=== PATIENT | female | born 1955 | race Caucasian/White ===

== ENCOUNTER → 2017-09-21 | Outpatient (CLI) | payer BC ==
[~2017-09-21] MED LIST: LIDOCAINE 1% MDV 20ML VIAL As Ordered
== END ==
LOC: M RADPRO 09:40
DX: D37.030 Neoplasm of uncertain behavior of the parotid salivary glands (principal); Z79.82 Long term (current) use of aspirin
CPT/HCPCS: 42400

== ENCOUNTER → 2021-03-13 | Outpatient (CLI) | payer MEDICARE ==
[~2021-03-13] MED LIST changes: +ATOR1TAB19 PO; +ESTR625TA PO; -LIDOCAINE 1% MDV 20ML VIAL As Ordered
== END ==
LOC: M LABSMTC 09:06
PROVIDERS: ATTEND Anesthesiology
DX: Z01.812 Encounter for preprocedural laboratory examination (principal); Z20.822 Contact with and (suspected) exposure to COVID-19

== ENCOUNTER 2021-03-17 07:54 | Day surgery (SDC) | payer MEDICARE ==
[~2021-03-17] VITALS: Ht 160 cm; Wt 54.9 kg
[~2021-03-17 07:54] MED LIST changes: +LIDOCAINE 1% MDV 20ML VIAL SQ PRN; +LR 1,000 ML IV ONE
--- OUTSIDE RECORDS SUMMARY | 2021-03-17 07:57 | CCD | Continuity of Care Document ---
Author Author Nori ALCALA [place] Organization Unknown Address [address] [place] [address] [place] [address] Phone [phone] Care Team Providers Care Hard Tile Setter Apprentice Name Role Phone Jose Armando Suarez MD AUT Unavailable Problems Description No Information Available Social History Type Date Description Comments Sex Unknown ETOH Use Rarely consumes alcohol Tobacco Use Start: Unknown Patient has never smoked Allergies and adverse reactions Description No Known Drug Allergies Medications Active Medications SIG Qnty Indications Ordering Provide r Date Amoxicillin/Clavulanate Potassium 875-125mg Tablets 1 tab by mouth twice a day for 7 days 14tabs J01.90 Christian Tariq JR., M.D. 01/24/2021 Premarin Unknown Atorvastatin Calcium 10mg Tablets Take 1 Tablet By Mouth Every Day Unknown Multi Adult Gummies Unknown History Medications No Active Medications Unknown - 01/24/2021 Immunizations CPT Code Status Date Vaccine Lot # [id number] Given 09/25/2015 Tdap/Tetanus, Di phth Toxoids/Acellular Pertussis Vac 7Yr Or > [id number] Vital Signs Date Vital Result Comment 01/24/2021 2:24pm BP Systolic 172 mmHg BP Diastolic 95 mmHg Heart Rate 79 /min Respiratory Rate 14 /min O2 % BldC Oximetry 96 % Body Temperature 97.5 F Weight 119.00 lb Height 63 inches 5'3" BMI (Body Mass Index) 21.1 kg/m2 Pain Level 3 01/07/2019 8:47am BP Systolic 160 mmHg BP Diastolic 91 mmHg Heart Rate 79 /min Respiratory Rate 18 /min O2 % BldC Oximetry 99 % Body Temperature 99.0 F Weight 118.00 lb Height 63 inches 5'3" BMI (Body Mass Index) 20.9 kg/m2 Pain Level 0 Results Description No Information Available Procedures Date Code Description Status 01/24/2021 99363 Office/Outpatient Established Lo w MDM 20-29 Min Completed Medical Devices Description No Information Available Encounters Type Date Location Provider Dx Diagnosis Office Visit 01/24/2021 1:15p Main Office CJ Gabriel JR H 66.92 Otitis media, unspecified, left ear Z20.828 Contact w and exposure to ot h viral communicable diseases Assessments Date Code Description Provider 01/27/2021 Z20.828 Contact with and (jackson spected) exposure to other viral communicable diseases CJ Jimenez 01/24/2021 H66.92 Otitis media, unspecified, left ear CJ Gabriel JR 01/24/2021 Z20.828 Contact with and (jackson spected) exposure to other viral communicable diseases CJ Gabriel JR Plan of Treatment No Information Available Functional Status Description No Information Available Mental Status Description No Information Available Referrals Description No Information Available
--- OUTSIDE RECORDS SUMMARY | 2021-03-17 07:57 | CCD | Continuity of Care Document ---
Author Author Nori SCHMIDT [place] Organization Unknown Address [address] [place] [address] [place] [address] Phone [phone] Care Team Providers Care Material Planner Name Role Phone Jose Armando Suarez MD AUTM Unavailable Problems Description No Information Available Social [...] CPT Code Status Date Vaccine Lot # [id number] Given 09/25/2015 Tdap/Tetanus, Di phth Toxoids/Acellular Pertussis Vac 7Yr Or > [id number] Vital Signs Date Vital Result Comment 01/24/2021 [...] 0 Results Description No Information Available Procedures Description No Information Available Medical Devices Description No Information Available Encounters Description No Information Available Assessments Description No Information Available Plan of Treatment 01/24/2021 - Evert Schmidt JR PA* All * New Medication:* Amoxicillin/Clavulanate Potassium 875-125 mg - 1 tab by mouth twice a day for 7 days * No Active Medications - Functional Status Description No Information Available Mental Status Description No Information Available Referrals Description No Information Available
--- OUTSIDE RECORDS SUMMARY | 2021-03-17 07:57 | CCD | Continuity of Care Document ---
Author Author Nori ALCALA [place] Organization Unknown Address [address] [place] [address] [place] [address] Phone [phone] Care Team Providers Care Medical Transcription Radiology Name Role Phone Jose Armando Suarez MD [...] CPT Code Status Date Vaccine Lot # [id number] Given 09/25/2015 Tdap/Tetanus, Di phth Toxoids/Acellular Pertussis Vac 7Yr Or > [id number] Vital Signs Date Vital Result Comment 01/24/2021 [...] Available Procedures Date Code Description Status 01/24/2021 22223 Office/Outpatient Established Lo w MDM 20-29 Min Completed Medical Devices Description No Information Available Encounters Type Date Location Provider Dx Diagnosis Office Visit 01/24/2021 1:15p Main Office CJ Gabriel JR H 66.92 Otitis media, unspecified, left ear Z20.828 Contact w and exposure to ot h viral communicable diseases Assessments Date Code Description Provider 01/24/2021 H66.92 Otitis media, unspecified, left ear CJ Gabriel JR 01/24/2021 Z20.828 Contact with and (jackson spected) exposure to other viral communicable diseases CJ Gabriel JR Plan of Treatment No Information Available Functional Status Description No Information Available Mental Status Description No Information Available Referrals Description No Information Available
--- OUTSIDE RECORDS SUMMARY | 2021-03-17 07:57 | CCD | Continuity of Care Document ---
Author Author Nori CAGLE [place] Organization Unknown Address [address] [place] [address] [place] [address] Phone [phone] Care Team Providers Care Cryptological Technician Name Role Phone Jose Armando Suarez MD [...] CPT Code Status Date Vaccine Lot # [id number] Given 09/25/2015 Tdap/Tetanus, Di phth Toxoids/Acellular Pertussis Vac 7Yr Or > [id number] Vital Signs Date Vital Result Comment 01/24/2021 [...] Available Procedures Date Code Description Status 01/24/2021 70367 Office/Outpatient Established Lo w MDM 20-29 Min [...]
--- OUTSIDE RECORDS SUMMARY | 2021-03-17 07:57 | CCD | Continuity of Care Document ---
Author Author Nori DACOSTA [place] Organization Unknown Address [address] [address] Phone [phone] Care Team Providers Care Sample Processor Name Role Phone Jose Armando Suarez M.D. AUTM [phone] Central Scheduling AUTM [phone] Problems Description No Active Problems Social History Type Date Description Comments Sex Unknown ETOH Use Rarely Tobacco Use Start: Unknown Non Smoker Recreational Drug Use Denies Drug Use Allergies and adverse reactions Description No Known Drug Allergies Medications Active Medications SIG Qnty Indications Ordering Provide r Date Multi Vitamin Tablets Unknown Vitamin D3 5000Unit Capsules once a day Unknown Premarin 0.625mg Tablets 1 by mouth every day Unknown Atorvastatin Calcium 10mg Tablets Jose Armando Suarez M.D. Immunizations Description No Information Available Vital Signs Date Vital Result Comment 03/10/2021 9:52am Height 63 inches 5'3" Weight 120.00 lb BMI (Body Mass Index) 21.3 kg/m2 [place] Body Weight 115 lb Weight 54.432 kg BSA (Body Surface Area) 1.56 m2 10/19/2017 1:46pm Height 63 inches 5'3" Weight 120.00 lb BMI (Body Mass Index) 21.3 kg/m2 [place] Body Weight 115 lb Weight 54.432 kg BSA (Body Surface Area) 1.56 m2 Results Description No Information Available Procedures Date Code Description Status 03/10/2021 10584 Office/Outpatient New Moderate M DM 45-59 Minutes Completed 03/10/2021 19485 Endoscopy Nasal Diagnostic Compl eted Medical Devices Description No Information Available Encounters Type Date Location Provider Dx Diagnosis Office Visit 03/10/2021 9:30a [facility] Mack Dacosta MD H69.93 Unspecified Eustachian tube disorder, bilateral R42 Dizziness and giddiness H91.93 Unspecified hearing loss, bi lateral H70.91 Unspecified mastoiditis, rig ht ear Assessments Date Code Description Provider 03/10/2021 H69.93 Unspecified Eustachian tube diso rder, bilateral Mack Dacosta MD 03/10/2021 R42 Dizziness and giddiness Mack srinivasan MD 03/10/2021 H91.93 Unspecified hearing loss, bilate ral Mack Dacosta MD 03/10/2021 H70.91 Unspecified mastoiditis, right e ar Mack Dacosta MD Plan of Treatment Future Appointment(s):* 03/17/2021 6:00 am - Mack Dacosta MD at [facility] 03/10/2021 - Mack Dacosta MD* H69.93 Unspecified Eustachian tube disorder, bilateral* Comments:* Management options for eustachian tube dysfunction and right mastoiditis include careful observation with use of antibiotic versus bilateral tympanostomy. Risks of procedure include but not limited to bleeding, infection, GA risks, tympanic membrane perforation, post-op otorrhea, myringosclerosis, cholesteatoma, and need for more tubes. The patient understands and wishes to proceed. * R42 Dizziness and giddiness * H91.93 Unspecified hearing loss, bilateral* Referral:* [facility], Audiology, Pumping Station Engineer * H70.91 Unspecified mastoiditis, right ear Functional Status Description No Information Available Mental Status Description No Information Available Referrals Refer to Reason for Referral Status Appt Date [facility], Audiology Hearing loss of undetermined nature. Please perform comprehensive audiometric assessment [facility] [address] [place] [address] [phone]
--- OUTSIDE RECORDS SUMMARY | 2021-03-17 07:57 | CCD | Continuity of Care Document ---
Author Author Nori ALCALA [place] Organization Unknown Address [address] [place] [address] [place] [address] Phone [phone] Care Team Providers Care Computerized Machine Fabric Cutter Name Role Phone Jose Armando Suarez MD [...] CPT Code Status Date Vaccine Lot # [id number] Given 09/25/2015 Tdap/Tetanus, Di phth Toxoids/Acellular Pertussis Vac 7Yr Or > [id number] Vital Signs Date Vital Result Comment 01/24/2021 [...] Available Procedures Date Code Description Status 01/24/2021 83264 Office/Outpatient Established Lo w MDM 20-29 Min [...]
--- OUTSIDE RECORDS SUMMARY | 2021-03-17 07:58 | CCD ---
Author Author [facility] Organization [facility] Address Unknown Phone Unavailable Care Team Providers Care Pedigree Researcher Name Role Phone Magno ZURITA MD Unavailable Magno Vee MD Unavailable Unavailable Magno ZURITA MD Unavailable Unavailable Magno ZURITA MD Unavailable Unavailable Magno ZURITA MD Unavailable Unavailable Magno ZURITA MD Unavailable Unavailable Magno ZURITA MD Unavailable Unavailable Jose Armando Rubio M.D. Unavailable Unavailable PICKERAL JR J MACARENA PA-C Unavailable Unavailable PICKERAL JR, J MACARENA PA-C Unavailable Unavailable PICKERAL JR, J MACARENA PA-C Unavailable Unavailable PICKERAL JR, J MACARENA PA-C Unavailable Unavailable PICKERAL JR, J MACARENA PA-C Unavailable Unavailable PICKERAL JR, J MACARENA PA-C Unavailable Unavailable PICKERAL JR, J MACARENA PA-C Unavailable Unavailable PICKERAL JR, J MACARENA PA-C Unavailable Unavailable PICKERAL JR, J MACARENA PA-C Unavailable Unavailable PICKERAL JR, J MACARENA PA-C Unavailable Unavailable PICKERAL JR, J MACARENA PA-C Unavailable Unavailable PICKERAL JR, J MACARENA PA-C Unavailable Unavailable PICKERAL JR, J MACARENA PA-C Unavailable Unavailable PICKERAL JR, J MACARENA PA-C Unavailable Unavailable PICKERAL JR, J MACARENA PA-C Unavailable Unavailable PICKERAL JR, J MACARENA PA-C Unavailable Unavailable PICKERAL JR, J MACARENA PA-C Unavailable Unavailable PICKERAL JR, J MACARENA PA-C Unavailable Unavailable PICKERAL JR, J MACARENA PA-C Unavailable Unavailable PICKERAL JR, J MACARENA PA-C Unavailable Unavailable PICKERAL JR, J MACARENA PA-C Unavailable Unavailable PICKERAL JR, J MACARENA PA-C Unavailable Unavailable PICKERAL JR, J MACARENA PA-C Unavailable Unavailable PICKERAL JR, J MACARENA PA-C Unavailable Unavailable PICKERAL JR, J MACARENA PA-C Unavailable Unavailable PICKERAL JR, J MACARENA PA-C Unavailable Unavailable PICKERAL JR, J MACARENA PA-C Unavailable Unavailable JOSE ARMANDO RUBIO Unavailable Unavailable JOCELYNNRajani MD Unavailable Unavailable JOCELYNNRajani MD Unavailable Unavailable JOCELYNNRajani MD Unavailable Unavailable JOCELYNNRajani MD Unavailable Unavailable JOCELYNNRajani MD Unavailable Unavailable JOCELYNNRajani MD Unavailable Unavailable JOCELYNNRajani MD Unavailable Unavailable JOCELYNNRajani MD Unavailable Unavailable JOCELYNNRajani MD Unavailable Unavailable JOCELYNNRajani MD Unavailable Unavailable JOCELYNNRajani MD Unavailable Unavailable JOCELYNNRajani MD Unavailable Unavailable JOCELYNNRajani MD Unavailable Unavailable JOCELYNNRajani Thompson MD Unavailable Unavailable JOCELYNNRajani MD Unavailable Unavailable JOCELYNNRajani Thompson MD Unavailable Unavailable JOCELYNNRajani MD Unavailable Unavailable JOCELYNNRajani MD Unavailable Unavailable JOCELYNNRajani MD Unavailable Unavailable JOCELYNNRajani MD Unavailable Unavailable JOCELYNNRajani MD Unavailable Unavailable JOCELYNNRajani MD Unavailable Unavailable JOCELYNNRajani MD Unavailable Unavailable JOCELYNNRajani MD Unavailable Unavailable JOCELYNNRajani MD Unavailable Unavailable JOCELYNNRajani MD Unavailable Unavailable JOCELYNNRajani MD Unavailable Unavailable JOCELYNNRajani MD Unavailable Unavailable JOCELYNNRajani MD Unavailable Unavailable JOCELYNNRajani MD Unavailable Unavailable JOCELYNNRajani MD Unavailable Unavailable GABRIEL, C ANTONIETA MD Unavailable Unavailable GABRIEL, C ANTONIETA MD Unavailable Unavailable GABRIEL, C ANTONIETA MD Unavailable Unavailable GABRIEL, C ANTONIETA MD Unavailable Unavailable GABRIEL, C ANTONIETA MD Unavailable Unavailable GABRIEL, C ANTONIETA MD Unavailable Unavailable GABRIEL, C ANTONIETA MD Unavailable Unavailable GABRIEL, C ANTONIETA MD Unavailable Unavailable GABRIEL, C ANTONIETA MD Unavailable Unavailable GABRIEL, C ANTONIETA MD Unavailable Unavailable GABRIEL, C ANTONIETA MD Unavailable Unavailable GABRIEL, C ANTONIETA MD Unavailable Unavailable GABRIEL, C ANTONIETA MD Unavailable Unavailable GABRIEL, C ANTONIETA MD Unavailable Unavailable GABRIEL, C ANTONIETA MD Unavailable Unavailable GABRIEL, C ANTONIETA MD Unavailable Unavailable GABRIEL, C ANTONIETA MD Unavailable Unavailable GABRIEL, C ANTONIETA MD Unavailable Unavailable GABRIEL, C ANTONIETA MD Unavailable Unavailable GABRIEL, C ANTONIETA MD Unavailable Unavailable GABRIEL, C ANTONIETA MD Unavailable Unavailable GABRIEL, C ANTONIETA MD Unavailable Unavailable GABRIEL, C ANTONIETA MD Unavailable Unavailable GABRIEL, C ANTONIETA MD Unavailable Unavailable GABRIEL, C ANTONIETA MD Unavailable Unavailable GABRIEL, C ANTONIETA MD Unavailable Unavailable GABRIEL, C ANTONIETA MD Unavailable Unavailable GABRIEL, C ANTONIETA MD Unavailable Unavailable GABRIEL, C ANTONIETA MD Unavailable Unavailable GABRIEL, C ANTONIETA MD Unavailable Unavailable GABRIEL, C ANTONIETA MD Unavailable Unavailable GABRIEL, C ANTONIETA MD Unavailable Unavailable GABRIEL, C ANTONIETA MD Unavailable Unavailable GABRIEL, C ANTONIETA MD Unavailable Unavailable Re-disclosure Warning The records that you are about to access may contain information from federally-assisted alcohol or drug abuse programs. If such information is present, then the following federally mandated warning applies: This information has been disclosed to you from records protected by federal confidentiality rules (42 CFR part 2). The federal rules prohibit you from making any further disclosure of this information unless further disclosure is expressly permitted by the written consent of the person to whom it pertains or as otherwise permitted by 42 CFR part 2. A general authorization for the release of medical or other information is NOT sufficient for this purpose. The Federal rules restrict any use of the information to criminally investigate or prosecute any alcohol or drug abuse patient.The records that you are about to access may contain highly sensitive health information, the redisclosure of which is protected by Article 27-F of the [place] State Public Health law. If you continue you may have access to information: Regarding HIV / AIDS; Provided by facilities licensed or operated by the [facility] Office of Mental Health; or Provided by the [facility] Office for People With Developmental Disabilities. If such information is present, then the following [facility] mandated warning applies: This information has been disclosed to you from confidential records which are protected by state law. State law prohibits you from making any further disclosure of this information without the specific written consent of the person to whom it pertains, or as otherwise permitted by law. Any unauthorized further disclosure in violation of state law may result in a fine or fci sentence or both. A general authorization for the release of medical or other information is NOT sufficient authorization for further disc losure. Allergies and Adverse Reactions Type Description Substance Reaction Status Data Source(s ) No Known Drug Allergies No Known Drug Allergies [facility] Propensity to adverse reactions Ragweed Ragweed WATERY EYES, RU NNY NOSE [facility] Drug allergy No Known Drug Allergies No Known Drug Allergies [facility] Family History Family Member Name Family Member Gender Family Member Status Date o f Status Description Data Source(s) Unknown Unknown Problem [facility] ([facility]) Unknown Male Problem MED[facility] ([facility]) () Unknown Unknown Problem [facility] ([facility]) father Unknown Unknown Problem [facility] ([facility] Encounters Encounter Providers Location Date Indications Data Source(s ) Outpatient Attender: ANTONIETA Dacosta/Jimbo/Jarod/Dana huerta 03/10/2021 08:30:00 AM EST MED[facility] ([facility] ) Outpatient Attender: Jose Armando Rubio M.D. 02/19/2021 07 :40:00 AM EST VESTIBULAR NEURONITIS G31.84 H81.20 [facility] VESTIBULAR NEURONITIS G31.84 H81.20 Outpatient Attender: JOSE ARMANDO RUBIOConsultant: JOSE ARMANDO RUBIO 02/17/2021 05:32:00 PM EST - 02/17/2021 06:32:00 PM EST [facility] Emergency Attender: BECKY ZURITA MD 01/09 01:06:00 PM EDT - 01/30/2021 02:32:00 PM EDT DIZZYNESSS[facility]EARAC[facility]NAUSATED Patient discharged. Outpatient Attender: MACARENA CAGLE JR Kim Bowden Christieedi tasneem 01/24/2021 01:15:00 PM EDT [facility] ([facility]) Outpatient Attender: CALI CABEZAS MD Family Practice 06/2020 02:30:00 PM EDT [facility] Outpatient Attender: CALI CABEZAS MDConsultant: JOSE ARMANDO TAI 11/10/2020 02:20:00 PM EDT - 11/10/2020 02:20:00 PM EDT [facility] Outpatient Attender: JOSE ARMANDO RUBIOConsultant: JOSE ARMANDO RUBIO 04/23/2020 04:42:00 PM EST - 04/23/2020 05:42:00 PM EST [facility] Emergency Attender: BECKY ZURITA MD 03/11 02:44:00 PM EST - 03/29/2020 04:04:00 PM EST [facility]. Outpatient Attender: CALI CABEZAS MDConsultant: JOSE ARMANDO TAI 03/23/2020 02:33:00 PM EST - 03/23/2020 02:33:00 PM EST [facility] Outpatient Attender: CALI CABEZAS MD Family Practice 03/10 01:45:00 PM EST [facility] ([facility]) Immunizations Vaccine Date Status Description Data Source(s) COVID-19 VACCINE Moderna 05/14/2020 12:00:00 AM EST completed [facility] Vaccine Series Complete: YESThis Data wa s Submitted to [facility] Via [employer]. COVID-19 VACCINE Moderna 04/16/2020 12:00:00 AM EST completed [facility] Vaccine Series Complete: NOThis Data was Submitted to [facility] [employer]. Medications Medication Brand Name Start Date Product Form Dose Route Admi nistrative Instructions Pharmacy Instructions Status Indications Reaction Description Data Source(s) Amoxicillin 875 MG / Clavulanate 125 MG Oral Tablet Am oxicillin/Clavulanate Potassium 01/24/2021 12:00:00 AM EDT ORAL active MEDENT ([facility]) No Active Medications 01/24/2021 12:00:00 AM EDT completed [facility] ([facility]) NITROFURANTOIN, MACROCRYSTALS 100 MG Oral Capsule Nitrofuran toin Macrocrystal 11/10/2020 12:00:00 AM EDT ORAL active MEDENT ([facility]) Estrogens, Conjugated (PRISON) 0.625 MG Oral Tablet [Premarin] Premarin 01/22/2020 12:00:00 AM EDT ORAL active M EDENT ([facility]) Estradiol 1 MG Oral Tablet Estradiol 12/26/2019 12:00:00 AM EDT ORAL completed MED[facility] ([facility]) Insurance Providers Payer name Policy type / Coverage type Policy ID Covered libertarian ID Covered libertarian's relationship to garcia Policy Garcia [facility] Information [id number] Spouse [id number] [facility] [id number] Spouse [id number] MEDICARE PART A [facility] [id number] 18 [id number] [facility] [place] [id number] BLUE CROSS BLUE SHIELD MCR -OP [id number] BLUE CROSS BLUE SHIELD CL BS UNAVAILABLE 01 UNAVAILABLE [facility] Commercial [id number] Self [id number] Medicare Part A MD Medicare Primary [id number] Self [id number] [facility] Health Maintenance Organization ([facility]) [id number] Family Dependent [id number] [facility] B [id number] P [id number] [id number] [facility] Health Maintenance Organization (O) [id number] Family Dependent [id number] Blue Cross Blue Shield CL Commercial [id number] Family Dependent [id number] [employer] B [id number] P YNI [id number] BLUE CROSS BLUE SHIELD-[facility] [id number] BCBS/[employer] Commercial [id number] Family Dependent [id number] BC[employer] Commercial [id number] Family Dependent [id number] Blue Cross Blue [facility] Commercial [id number] Family Dependent [id number] BCBS/[employer] Commercial [id number] Family Dependent SELF PAY UNAVAILABLE SP UNAVAILA BLE BCBS [place] PPO 302/307 [id number] HU2 [id number] [place]BS [place] PPO 302/307 [id number] BS/W/Id#Prefix/W ALL #'S Commercial [id number] Family Depende nt [employer] Exchange Plans Health Maintenance Organization (HMO) [id number] Self [employer] BCBS S [id number] P VYS [id number] BCBS OF [place] 306/8 P [id number] P [id number] MEDICARE BLUE PPO 306 [id number] SP [id number] BCBS [place] PPO 302/307 [id number] Problems, Conditions, and Diagnoses Code Display Name Description Problem Type Effective Dates Data Source(s) G3184 Mild cognitive impairment, so stated Mild cognit diane impairment, so stated Diagnosis 02/17/2021 05:32:[address] [facility] I6523 Occlusion and stenosis of bilateral garcia tid arteries Occlusion and stenosis of bilateral carotid arteries Diagnosis 04/23/2020 04:42:[address] [facility] I6521 Occlusion and stenosis of right carotid artery Occlusion and stenosis of right carotid artery Diagnosis 04/23/2020 04:42:00 PM [facility] [id number] Encounter for gynecological examination (general) (routine) without abnormal findings Encounter for gynecological examination (general) (routine) without abnormal findings Diagnosis 03/23/2020 02:33:00 PM EST [facility] Surgeries/Procedures Procedure Description Date Indications Data Source(s) Endoscopy Nasal Diagnostic 03/10/2021 12:00:00 AM EST MED[facility] ([facility], ) OFFICE OUTPATIENT NEW 45 MINUTES 03/10/2021 12:00:00 A M EST MED[facility] ([facility], ) OFFICE OUTPATIENT VISIT 15 MINUTES 01/24/2021 12:00:00 AM EDT MED[facility] ([facility]) OFFICE OUTPATIENT VISIT 10 MINUTES 11/10/2020 12:00:00 AM EDT [facility] ([facility]) 03/29/2020 12:00:00 AM EST [facility] Influenza-Like Illness (PCR) 03/29/2020 12:00:00 AM [facility] Results ID Date Data Source [id number] 03/13/2021 09:02:00 AM EST [facility] Name Value Range Interpretation Code Description Data Julianna rce(s) Supporting Document(s) SARS-CoV-2 (COVID-19) RNA [Presence] in Respiratory specimen by JESSICA with probe detection Not Detected [facility] This lab was ordered by [facility] and reported by [employer] ID Date Data Source [id number] 03/01/2021 05:59:17 PM EST Laboratory [facility] Name Value Range Interpretation Code Description Data Julianna rce(s) Supporting Document(s) ESR 13 mm/h (0-30) [facility] ID Date Data Source [id number] 03/01/2021 07:22:20 PM EST [facility] Name Value Range Interpretation Code Description Data Julianna rce(s) Supporting Document(s) LYME IGM/IGG AB @ (NEG) [facility] A Negative serologic test for Lyme Disea seindicates no serologic evidence of infectionwith B burgdorferi at the time this specimenwas collected. A repeat specimen should be collected in 2 to 4 weeks if clinicallyindicated. In-house assay revised on 06/01/2020 and nowincludes antibodies against outer surfaceprotein (OspC) in addition to VlsE. ID Date Data Source [id number] 03/01/2021 09:28:13 PM EST Laboratory [facility] [employer] Name Value Range Interpretation Code Description Data Julianna rce(s) Supporting Document(s) C REACTIVE PROTEIN @ 0.9 mg/dL (0.0-0.5) H Laborator [facility] ID Date Data Source [id number] 03/02/2021 02:26:22 PM EST Laboratory [facility] [employer] Name Value Range Interpretation Code Description Data Julianna rce(s) Supporting Document(s) LUIS ALBERTO SCREEN @ (NEG) Laboratory [facility] ID Date Data Source [id number] 03/05/2021 10:43:18 AM EST Laboratory [facility] [employer] Name Value Range Interpretation Code Description Data Julianna rce(s) Supporting Document(s) IGG @ 707 mg/dL (700-1600) [facility] IGA @ 141 mg/dL (71-374) [facility] IGM @ 118 mg/dL (40-248) [facility] ID Date Data Source [id number] 03/07/2021 11:51:07 PM EST Laboratory [facility] [employer] Name Value Range Interpretation Code Description Data Julianna rce(s) Supporting Document(s) MYELOPEROX AB 0 AU/mL Laboratory [facility] of [employer] Reference range: 0 to 19 INTERPRETIVE IN FORMATION: Myeloperoxidase Abs, IgG 19 AU/mL or Less ......... Negative 20-25 AU/mL .............. Equivocal 26 AU/mL or Greater ...... Positive Approximately 90% of patients with a P-ANCA pattern by IFA have antibodies specific for MPO. SERINE PROTEINASE 3 1 [facility] Reference range: 0 to 19Unit: AU/mL INTE RPRETIVE INFORMATION: Serine Proteinase 3, IgG 19 AU/mL or Less ........ Negative 20-25 AU/mL ............. Equivocal 26 AU/mL or Greater ..... Positive Approximately 85% of patients with a C-ANCA pattern by IFA have antibodies specific for PR3. ANCA IFA TITER Laboratory [facility] <1:20Reference range: <1:20 ANCA IFA PATTERN [facility] None DetectedReference range: None Detec nathanael INTERPRETIVE INFORMATION: ANCA IFA Pattern Neutrophil Cytoplasmic Antibodies (C-ANCA = granular cytoplasmic staining, P-ANCA = perinuclear staining) are found in the serum of over 90 percent of patients with certain necrotizing systemic vasculitides, and usually in less than 5 percent of patients with collagen vascular disease or arthritis. Performed By: [facility] [address] [place] [id number] Photo Mask Processor: Magda Louis MD ID Date Data Source [id number] 03/08/2021 04:04:00 PM EST [facility] Name Value Range Interpretation Code Description Data Julianna rce(s) Supporting Document(s) TOTAL PROTEIN 6.8 g/dL (6.4-8.2) [facility] TOTAL PROTEIN EPP 6.8 g/dL (6.4-8.2) [facility] ALBUMIN CALC 4.3 g/dL (3.9-5.1) [facility] ALPHA 1 CALC 0.2 g/dL (0.1-0.3) [facility] ALPHA 2 CALC 0.9 g/dL (0.4-1.0) [facility] BETA CALC 1.0 g/dL (0.5-1.1) [facility] GAMMA CALC 0.5 g/dL (0.4-1.2) Laboratory [facility] MONOCLONAL CALC (NOMONO) A Laboratory [facility] ALBUMIN PERCENT 63.0 % (58.8-69.6) [facility] ALPHA 1 PERCENT 2.4 % (1.6-3.0) [facility] ALPHA 2 PERCENT 13.3 % (7.2-13.2) H [facility] BETA PERCENT 13.9 % (8.0-14.7) [facility] GAMMA PERCENT 7.4 % (7.3-16.4) [facility] INTERPRETATION: [facility] Interpretation performed atLaboratory Al liance of [address] [address] Faint band in early gamma region. Immunofixation will be performed. Santhosh TAYLOR MD 03/03/21 ID Date Data Source [id number] 03/08/2021 04:04:00 PM EST [facility] Name Value Range Interpretation Code Description Data Julianna rce(s) Supporting Document(s) IMMUNOFIX SERUM @ [facility] IgG LAMBDA MONOCLONAL PROTEIN IDENTIFIED Santhosh TAYLOR MD 03/07/21Interpretation performed atLaboratory [facility] of [address] [address] ID Date Data Source [id number] 03/01/2021 07:03:36 PM EST [facility] SPECIMEN DESCRIPTION URINE, COLLE CTION METHOD NOT SPECIFIEDCULTURE RESULTS >100,000 CFU/ML ESCHERICHIA COLI >100,000 CFU/ML STREPTOCOCCUS VIRIDANS IMPORTANT NOTE FOR COMPLICATED INFECTIONS SUCH UROSEPSIS CEFAZOLIN SHOULD HAVE A JALEN OF LESS THAN OR EQUAL TO 2 TO BE CONSIDERED SUSCEPTIBLE. CONTACT MICROBIOLOGY FOR FURTHER TESTING IF WARRANTED.NOTE: VIRIDANS STREPTOCOCCI REPRESENT NORMAL UROGENITAL LUCRETIA AND AREA RARE CAUSE OF A UTI. ROUTINE SUSCEPTIBILITY TESTING IS NOTPERFORMED. REPORT STATUS FINAL 03/03/2021ORGANISM ESCHERICHIA COLIMETHOD MICAMIKACIN <=2 SUSCEPTIBLEAMOXICILLIN/CLAVULANIC AC >=32/16 RESISTANTAMPICILLIN >=32 RESISTANT ISOLATES SUSCEPTIBLE TO AMPICILLIN ARE ALSO SUSCEPTIBLE TO AMOXICILLIN.CEFAZOLIN >=64 RESISTANT FOR UNCOMPLICATED UTI'S,CEFAZOLIN JALEN RESULTS LESS THAN OR EQUAL TO 16 MCG/ML PREDICT SUSCEPTIBILITY OF THE FOLLOWING ORAL CEPHALOSPORINS:CEFACLOR,CEFDINIR, CEFPODOXIME,CEFPROZIL,CEFUROXIME AND CEPHALEXIN.CEFEPIME <=1 SUSCEPTIBLECEFOXITIN 32 RESISTANTCEFTAZIDIME <=1 SUSCEPTIBLECEFTRIAXONE <=1 SUSCEPTIBLECIPROFLOXACIN <=0.25 SUSCEPTI BLEGENTAMICIN <=1 SUSCEPTIBLELEVOFLOXACIN <=0.12 SUSCEPTIBLEMEROPENEM <=0.25 SUSCEPTIBLENITROFURANTOIN <=16 SUSCEPTIBLEPIPERACILLIN/TAZOBACTAM <=4 SUSCEPTIBLETETRACYCLINE 2 SUSCEPTIBLE ISOLATES SUSCEPTIBLE TO TETRACYCLINE ARE ALSO SUSCEPTIBLE TO DOXYCYCLINE AND MINOCYCLINE.TOBRAMYCIN <=1 SUSCEPTIBLETRIMETH/SULFA <=/ SUSCEPTIBLEERTAPENEM <=0.5 SUSCEPTIBLE Name Value Range Interpretation Code Description Data Julianna rce(s) Supporting Document(s) COLOR Laboratory [facility] APPEARANCE Laboratory [facility] [employer] SPEC GRAV URINE 1.013 (1.003-1.030) [facility] [employer] PH URINE 7.0 (5.0-7.5) Laboratory [facility] [employer] LEUK ESTERASE 3+ (NEG) A Laboratory [facility] NITRITE URINE (NEG) Laboratory [facility] PROTEIN URINE (NEG) Laboratory [facility] [employer] - [facility] GLUCOSE URINE (NEG) Laboratory [facility] [employer] - [facility] KETONE URINE (NEG) Laboratory [facility] [employer] - CORE UROBILINOGEN 0.2 mg/dL (0-1.0) Laboratory [facility] [employer] - [facility] BILIRUBIN URINE (NEG) Laboratory [facility] [employer] [facility] BLOOD/HGB URINE (NEG) A [facility] URINE WBC (0-5) [facility] URINE RBC (0-2) [facility] EPITHELIAL CELLS 1+ [HPF] Laboratory [facility] BACTERIA 2+ [HPF] [facility] [employer] ID Date Data Source [id number] 03/03/2021 09:03:05 AM EST Laboratory [facility] SPECIMEN DESCRIPTION URINE, COLLE CTION METHOD NOT SPECIFIEDCULTURE RESULTS >100,000 CFU/ML ESCHERICHIA COLI >100,000 CFU/ML STREPTOCOCCUS VIRIDANS IMPORTANT NOTE FOR COMPLICATED INFECTIONS SUCH UROSEPSIS CEFAZOLIN SHOULD HAVE A JALEN OF LESS THAN OR EQUAL TO 2 TO BE CONSIDERED SUSCEPTIBLE. CONTACT MICROBIOLOGY FOR FURTHER TESTING IF WARRANTED.NOTE: VIRIDANS STREPTOCOCCI REPRESENT NORMAL UROGENITAL LUCRETIA AND AREA RARE CAUSE OF A UTI. ROUTINE SUSCEPTIBILITY TESTING IS NOTPERFORMED. REPORT STATUS FINAL 03/03/2021ORGANISM ESCHERICHIA COLIMETHOD MICAMIKACIN <=2 SUSCEPTIBLEAMOXICILLIN/CLAVULANIC AC >=32/16 RESISTANTAMPICILLIN >=32 RESISTANT ISOLATES SUSCEPTIBLE TO AMPICILLIN ARE ALSO SUSCEPTIBLE TO AMOXICILLIN.CEFAZOLIN >=64 RESISTANT FOR UNCOMPLICATED UTI'S,CEFAZOLIN JALEN RESULTS LESS THAN OR EQUAL TO 16 MCG/ML PREDICT SUSCEPTIBILITY OF THE FOLLOWING ORAL CEPHALOSPORINS:CEFACLOR,CEFDINIR, CEFPODOXIME,CEFPROZIL,CEFUROXIME AND CEPHALEXIN.CEFEPIME <=1 SUSCEPTIBLECEFOXITIN 32 RESISTANTCEFTAZIDIME <=1 SUSCEPTIBLECEFTRIAXONE <=1 SUSCEPTIBLECIPROFLOXACIN <=0.25 SUSCEPTI BLEGENTAMICIN <=1 SUSCEPTIBLELEVOFLOXACIN <=0.12 SUSCEPTIBLEMEROPENEM <=0.25 SUSCEPTIBLENITROFURANTOIN <=16 SUSCEPTIBLEPIPERACILLIN/TAZOBACTAM <=4 SUSCEPTIBLETETRACYCLINE 2 SUSCEPTIBLE ISOLATES SUSCEPTIBLE TO TETRACYCLINE ARE ALSO SUSCEPTIBLE TO DOXYCYCLINE AND MINOCYCLINE.TOBRAMYCIN <=1 SUSCEPTIBLETRIMETH/SULFA <=1/19 SUSCEPTIBLEERTAPENEM <=0.5 SUSCEPTIBLE Name Value Range Interpretation Code Description Data Julianna rce(s) Supporting Document(s) ID Date Data Source [id number] 02/19/2021 10:26:00 AM EST [facility] [address] [place] [address] [phone] NAME SEX PT STATUS ACCOUNT NUMBER NEHAL RODRIGUEZ REG REF [id number] ORDERING PHYSICIAN LOCATION MEDICAL RECORD NO. Jose Armando Rubio M.D. MRI [id number] ATTENDING PHYSICIAN DATE OF DATE OF EXAM/TIME Jose Armando Rubio MD 1955 02/19/21910 TYPE / EXAM MRI Brain w/ w/o contrast REASON FOR EXAM MILD COGNITIVE IMPAIRMENT, VESTIBULAR NEURONITIS, UNSPECIFIED EAR CLINICAL HISTORY: [facility] MILD COGNITIVE IMPAIRMENT, VESTIBULAR NEURONITIS, UNSPECIFIED EAR COMPARISON: Comparison is made with images from CT study the brain June 01, 2017. TECHNIQUE: Axial and sagittal imaging planes are utilized for T1 and T2-weighted scans. Sequences include spin-echo, fast spin echo, FLAIR, and diffusion weighted sequences. The contrast-enhancement dose is5 mL's of intravenous Gadavist. FINDINGS: No bony calvarial lesion is seen. Craniocervical junction and upper cervical cord are normal in appearance. There is fluid filling of few of the right mastoid air cells similar to the prior CT study from 2018. There is no other MR evidence of significant paranasal sinus disease. No intraorbital abnormality is seen. The lateral, third, and fourth ventricles are normal in size and position. Blakely-white differentiation pattern is intact above and below the tentorium. There is no evidence of intracranial hemorrhage. No mass, infarction, extra-axial fluid collection or midline shift is seen. There are a few scattered subcortical and periventricular white matter foci of T2 hyperintensity inthe frontal lobes consistent with mild small vessel changes. Diffusion-weighted scans show no evidence of restricted diffusion to suggest acute ischemia. Post gadolinium enhanced T1 weighted sequences show no abnormal intracranial contrast enhancement. Enhancement is seen in normal intracranial vasculature. IMPRESSION: There are a few persistently fluid-filled right mastoid sinus air cells. Mild small vessel changes.No acute intracranial abnormality. Otherwise negative. Reported By Merrill Ham MD on 02/19/21 1026 Signed By Merrill Ham MD on 02/19/21 1032 __ Date Time CC: Jose Armando Rubio M.D.; Merrill Ham M.D. Techn: CAROLINA Trans Dt/Tm: Trans by: DT Prt Dt/Tm: : Total DLP = 0.00 mGy-cm : Total Radiation Dose = 0.0000 mSv Lifetime Dose: 0 mSv Name Value Range Interpretation Code Description Data Julianna rce(s) Supporting Document(s) ID Date Data Source [id number] 02/17/2021 06:31:00 PM EST [facility] Name Value Range Interpretation Code Description Data Julianna rce(s) Supporting Document(s) BASIC METABOLIC PANEL [facility] BASIC METABOLIC PANEL Sodium [Moles/volume] in Serum or Plasma 140 mEq/L 134 - 153 [facility] Potassium [Moles/volume] in Serum or Plasma 3.8 mEq/L 3.6 - 5.0 [facility] Chloride [Moles/volume] in Serum or Plasma 101 mEq/L 98 - 107 [facility] Carbon dioxide, total [Moles/volume] in Serum or Plasma 28 MEQ/L 22 - 30 [facility] Glucose [Mass/volume] in Serum or Plasma 94 MG/DL 70 - 99 [facility] BUN 13 MG/DL 7 - [facility] Creatinine [Mass/volume] in Serum or Plasma 0.8 MG/DL 0.7 - 1.5 [facility] BUN/CREAT 16 8 - 27 [facility] Calcium [Mass/volume] in Serum or Plasma 9.6 MG/DL 8.4 - 10.2 [facility] Anion gap 3 in Serum or Plasma 11.0 mmol/L 8.0 - 16.0 [facility]GE 65 [facility] AMER GFR >60 [facility] NON-AA GFR >60 mL/min [facility] ital Male GFR Inter prentation 20-49 yrs >60 mL/min Normal 50-59 yrs >56 mL/min Normal 60-69 yrs >49 mL/min Normal 70-79yrs >42 mL/min Normal 80 and above >35 mL/min Normal Female GFR Interpretation 20-39 yrs >60 mL/min Normal 40-49 yrs >58 mL/min Normal 50-59 yrs >51 mL/min Normal 60-69 yrs >45 mL/min Normal 70-79 yrs >39 mL/min Normal 80 and above >32 mL/min Normal ID Date Data Source [id number] 01/30/2021 01:57:00 PM EDT [facility] ED Physician Documentation NAME: NEHAL RODRIGUEZ : 1955 AGE: 65 MR#: [id number] SERVICE DATE: 01/30/[address]: Becky Zurita MD PRIMARY CARE DR: Jose Armando Rubio M.D. ROOM#: HPI [facility] General Chief Complaint: HEENT Stated Complaint: DIZZYNESSS,EARACHE,NAUSATED Time Seen by Provider: 01/30/21 13:42 Source: patient and family Nurse screening for coronavirus: Recent Travel outside the No country (where) Has patient experienced No coronavirus symptoms HEENT Problem Narrative:: 65 yo woman with no significant PMHX, presents with c/o sinus congestion and b/l ear pain for at least a week, not improving despite being given Augmentin at an Urgent Care center earlier this week. No c/o fevers or chills, slight cough, no N/V/D. She does have chronic post-nasal drip. Allergies/Home Meds Allergies Allergy/AdvReac Type Severity Reaction Status Date / Time No Known Drug Allergies Allergy Verified 01/30/21 13:34 Home Medications Medication Instructions Recorded Confirmed Last Taken Type Dim 250 Veggie Complex 1 tab PO DAILY 06/01/17 01/30/21 01/30/21 History acetaminophen 500 mg tablet (Mapap 1 tab PO PRN PRN 06/01/17 01/30/21 06/01/17 History Extra Strength) amoxicillin 875 mg- potassium 1 ea PO BID 01/30/21 01/30/21 01/30/21 History clavulanate 125 mg tablet (Augmentin) Vital Signs Vital Signs: Vital Signs 01/30/21 13:08 Temperature 97.3 F L Pulse Rate 75 Respiratory Rate 20 Blood Pressure 178/88 O2 Sat by Pulse Oximetry 98 PMH (from Triage) Patient Medical History PMH Reviewed/Updated as Needed: Yes Hx Drug Resistant Infections Hx MRSA: (Methicillin-resistant Staphylococcus aureus): No Hx VRE (Vancomycin-resistant enterococci): No Hx C.Diff: No Hx CRKP: No Isolation: Standard precautions Hx Recent Travel Out of the country within 10 days (where): No Hx Fever: No Hx Fever with a rash?: No Nurse screening for coronavirus: Recent Travel outside the No country (where) Has patient experienced No coronavirus symptoms Social History Does patient have suicidal/homicidal thoughts or ideation?: No Are you in a relationship with/Does anyone hit you, yell/swear at you, steal from you?: No Substance Use Hx Alcohol Use: No Hx Substance Use: No Hx Substance Use Treatment: No Vaccination History Hx/Date of Tetanus, Diphtheria Vaccination: No Hx/Date of Influenza Vaccination: No Hx/Date of Pneumococcal Vaccination: No PFSH Social History Does the Patient have a Healthcare Proxy: Yes Does Patient have a DNR?: No Does Patient have a Living Will?: Yes Hx Recent Travel (where): No Smoking Status: Never smoker ROS Review of Systems Constitutional: Denies fever or chills ENT: Reports ear pain, nasal discharge and post nasal drip; Denies throat pain Respiratory: Reports cough Cardiovascular: Denies chest pain Gastrointestinal: Denies nausea, vomiting, abdominal pain or diarrhea Musculoskeletal: Denies muscle pain or joint pain Skin/Breasts: Denies rash Neurologic: Denies headache Endocrine: Denies Loss of appetite Hematological/Lymphatic: Denies swollen glands Allergic/Immunologic: Denies rash Physical Exam General Physical Exam Narrative: Very thin woman, awake and alert, comfortable appearing Limitations: no limitations General appearance: alert and in no apparent distress Head Head exam: Present atraumatic, normocephalic and normal inspecti on Eye Eye exam: Present normal apperance and EOMI; Absent scleral icterus or conjunctival injection ENT ENT exam: Present mucous membranes moist; Absent normal exam (R ear cerumen impaction), normal orophraynx (post nasal mucus noted) or TM's normal bilaterally (R ear TM not seen, L TM clear with slight fullness) Neck Neck exam: Present normal inspection and full ROM; Absent tenderness Respiratory Respiratory exam: Present normal lung sounds bilaterally; Absent respiratory distress Cardiovascular Cardiovascular Exam: Present regular rate and normal rhythm GI/Abdominal GI/Abdominal exam: Present Abd soft, bowel sounds present all quadrents; Absent tenderness Extremities Exam Extremities exam: Present normal inspection and full ROM; Absent tenderness Back Exam Back exam: Present normal inspection and full ROM; Absent tenderness Neurological Exam Neurological exam: Present alert and oriented X3; Absent motor sensory deficit Psychiatric Psychiatric exam: Present normal affect and normal mood Skin Skin exam: Present warm, dry, intact and normal color Vital Signs Vital Signs: Vital Signs 01/30/21 13:08 Temperature 97.3 F L Pulse Rate 75 Respiratory Rate 20 Blood Pressure 178/88 O2 Sat by Pulse Oximetry 98 MDM (comprehensive) Medical Decision Making Free Text/Narative:: The patient was evaluated for ear pain and sinus congestion. The PE was significant for impacted cerumen on the R sided with normal TM on the left. She was treated with Debrox drops and Flonase nasal spray. Plan Plan Plan: d/c home Plan of care: Follow up appointments discussed, Plan of care discussed with patient and or family, Patient encouraged to ask questions about plan and Patient agrees with plan of care Visit Medications Administered ED medications:: Medications Discontinued Medications Generic Name Dose Route Start Last Admin Trade Name Freq PRN Reason Stop Dose Admin Carbamide Perox/Anhydrous Glycerin 5 drops 01/30/21 13:56 01/30/21 14:26 Carbamide Peroxide 6.5% 15ml Btl RIGHT EAR 01/30/21 13:57 Not Given TO GO ONE Fluticasone Propionate 1 spray 01/30/21 13:57 01/30/21 14:26 Fluticasone Propionate Nasal (50 Mcg/Spy) EN 01/30/21 13:58 Not Given TO GO ONE Discharge Plan Admission/Discharge Dx Primary DC Diagnosis: Chronic Congestion ED Provider: Becky Zurita ED Status: Discharged Time Seen by Provider: 01/30/21 13:42 Triaged At: 01/30/21 13:08 Condition Condition: Good Discharge Detail Disposition: Home, Self-Care Med Rec New Prescriptions: No Action acetaminophen [Mapap Extra Strength] 500 MG tablet 1 tab PO PRN PRN (Reason: Discomfort) 0RF Dim 250 Veggie Complex 1 tab PO DAILY 0RF amoxicillin-pot clavulanate [Augmentin] 875-125 mg tablet 1 ea PO BID 0RF Medications Medication reconciliation performed by provider at discharge: Yes Follow Up Care/Instructions Diet/Activity/Wound Care..: Continue with Debrox 5 drops to R ear twice daily and Flonase 1 spray per nostril twice daily, ENT follow-up *Discharge Patient* Discharge Orders: Discharge Order (Routine); Ordered 01/30/21 Ordered By: Becky Zurita Discharge Date/Time: 01/30/21 14:32 Interventions Interventions: ED Discharge Instructions Last Done: 01/30/21 14:32 Head,Neck,Ears,Eyes Throat Assessment Last Done: 01/30/21 14:29 Report Signers: <Electronically signed by Becky Zurita MD> Becky Zurita MD 01/31/21 0712 Becky Zurita MD SIGNATURE DA Report Cosigners: D: [email or web address] 01/30/211356 T: SKEMI 01/30/211356 CC: Jose Armando Rubio M.D. Name Value Range Interpretation Code Description Data Julianna rce(s) Supporting Document(s) ID Date Data Source [id number] 01/27/2021 12:00:00 AM EDT [facility] Name Value Range Interpretation Code Description Data Julianna rce(s) Supporting Document(s) SARS-CoV2 Rapid PCR Negative [facility] This lab was ordered by [facility] and reported by [facility]. ID Date Data Source [id number] 11/16/2020 06:15:00 AM EDT [facility] Name Value Range Interpretation Code Description Data Julianna rce(s) Supporting Document(s) CULTURE URINE [facility] _CULTURE URINE_$$[id number]$$[id number]$$[id number]$$203090$$429964$$278792$$198001$$358025$$612261$$ 829479$$696043$$738283$$386126$$449517$$175296$$070167$$458911$$393955$$947981$$ 166780$$984807$$216881$$362044$$691456$$746795$$[id number]$$[id number] -- Continued on next page --Patient: IMCHAEL CALVERT Order: [id number] Page 2Culture: CULTURE URINE Status: Final ==== -- Continued on next page --Patient: MICHAEL CALVERT Order: [id number] Page 2Culture: CULTURE URINE Status: Prelim =====$$[id number]$$[id number] DATE/TIME: 11/16/2020 06:05Culture: CULTURE URINE Status: FinalIsolate 1 Escherichia coli Flag: A . . . . . . .150,000-100,000 colony forming units per mLCefazolin <=4 ug/mLCefazolin with an JALEN <=16 predicts susceptibility to the oral agentscefaclor, cefdinir, cefpodoxime, cefprozil, cefuroxime, cephalexin,and loracarbef when used for therapy of uncomplicated urinary tractinfections due to E. coli, Klebsiella pneumoniae, and Proteusmirabilis. Previous result entered on 11/13/2020 14:50 ET Escherichia coliUrine Culture,Comprehensive: [id number] coli Flag: APatient: MICHAELDEION CALVERT Order: [id number] Page 3Culture: CULTURE URINE Status: Final ISOLATE 1 Escherichia coli Isolate 1Antibiotic JALEN IntUnits ug/mL ----Amoxicillin/Clavulanic Acid S S . . . . . .20-8Ampicillin S S . . . . . .28-1Cefepime S S . . . . . .6644-9Ceftriaxone S S . . . . . .141-2Cefuroxime S S . . . . . .145- 3Ciprofloxacin S S . . . . . .185-9Ertapenem S S . . . . . .36409-0Exatqquqkt S S . . . . . .267-5Imipenem S S . . . . . .279-0Levofloxacin S S . . . . . .26068-8Hmaqepkgk S S . . . . . .6652-2Nitrofurantoin S S . . . . . .363-2Piperacillin/Tazobactam S S . . . . . .412-7Tetracycline S S . . . . . .496-0Tobramycin S S . . . . . .508-2Trimethoprim/Sulfa S S . . . . . .516-5P1 Test performed by: [facility] #: [id number] [address] [place] [address] [id number] [facility] [id number] Director : Carlton Lundy MD NPI #:Babbitt Spinner : 11/13/20.1536.XMT.SENT REF 11/16/20.0615.XMT.SENT REF ID Date Data Source [id number] 11/10/2020 02:26:00 PM EDT [facility] ([facility]) Name Value Range Interpretation Code Description Data Julianna rce(s) Supporting Document(s) Appearance of Urine Laboratory test result [facility] ([facility]) Spec [place] 1.025 1.001-1.030 [facility] ([facility]) Color of Urine Laboratory test result [facility] ([facility]) pH of Urine by Test strip 5 5-9 [facility] NT ([facility]) Leukocytes Laboratory test result [facility] ([facility]) Protein [Presence] in Urine by Test strip Laboratory test result [facility] ([facility]) Nitrate [Presence] in Urine Laboratory test result [facility] ([facility]) Inhouse Glucose Laboratory test result [facility] ([facility]) Urobilinogen Laboratory test result [facility]) Ketones [Presence] in Urine by Test strip [facility] Blood type and Indirect antibody screen panel - Blood Laboratory test result [facility] ([facility]) Bilirubin.total [Presence] in Urine by Test strip Laboratory test res ult [facility] ([facility]) ID Date Data Source [id number] 04/24/2020 09:58:00 AM EST [facility] [address] [place] [address] PHONE: [phone] FAX: [phone] Name .................. : MICHAEL CALVERT Acct Number.................. : [id number] ROOM. ................. : Number ................... : [id number] Stay type ............. : O/P Discharge Date......... ... : 04/23/20 Admit Date ......... : 04/23/20 Admit Phys .................... : RAMIRO Kiran Date of ....... : 1955 Family Phys ................... : RAMIRO Kiran Phone .................. : [phone] Age ................................ : 65 Film# .................. .:[id number] Sex ................................. : F Unsigned transcriptions are preliminary reports and do not represent a medical or legal document [place] CAROTID [id number] COMPLETE:04/23/20 17:44 BAW 2232 (REASON FOR PROCEDURE occlusion and stenosis of rt carotid artery CAROTID DOPPLER ULTRASOUND: INDICATION: Occlusion and stenosis of the right carotid artery. FINDINGS: The peak systolic velocity in the right common carotid artery is 71 cm/s. The peak systolic velocity in the right internal carotid artery is 70 cm/s. The right ratio is 1.0. The peak systolic velocity in the left common carotid artery is 82 cm/s. The peak systolic velocity in the left internal carotid artery is 100 cm/s. The left ratio is 1.2. There is antegrade flow in the bilateral vertebral arteries. There is no significant plaque on blakely scale images. IMPRESSION: There is less than 50% stenosis in the bilateral internal carotid arteries according to sonographic NASCET criteria. NASCET was utilized while determining the amount of stenosis on the ultrasound of the carotids. Electronically Reviewed and Signed By José Miguel Garcia M.D. , 04/24/20 09:58, [facility] Transcribe Initials: DZ , Transcribe Date: 04/23/20 22:19, Dictation Date: Copy for: RAMIRO ORELLANA Copy for: [address] [place] [address] REC Page 1 of 1 Name Value Range Interpretation Code Description Data Julianna rce(s) Supporting Document(s) ID Date Data Source [id number] 04/13/2020 01:16:00 PM EST [facility] Name Value Range Interpretation Code Description Data Julianna rce(s) Supporting Document(s) WBC 4.9 10*3/uL (4.1-11.0) [facility] RBC 4.74 10*6/uL (4.00-5.40) [facility] HGB 14.8 g/dL (12.0-16.0) [facility] HCT 44.4 % (36.0-47.0) [facility] MCV 93.8 fL (80.0-95.0) [facility] MCH 31.2 pg (27.0-32.0) [facility] MCHC 33.2 g/dL (32.0-36.0) [facility] RDW 13.5 % (10.5-14.5) [facility] PLT 339 10*3/uL (150-450) [facility] MPV 7.5 fL (7.1-10.7) [facility] NEUT % 72.7 % (35.0-75.0) [facility] LYMPH % 20.1 % (16.0-52.0) [facility] MONO % 5.1 % (0.0-8.0) [facility] EOS % 1.2 % (0.0-5.0) [facility] BASO % 0.9 % (0.0-4.0) [facility] NEUT # 3.6 10*3/uL (1.8-7.7) [facility] LYMPH # 1.0 10*3/uL (1.2-4.8) L [facility] MONO # 0.2 10*3/uL (0.0-0.8) [facility] Eosinophils [#/volume] in Blood by Automated count 0.1 10*3/uL (0.0-0 .5) [facility] BASO # 0.0 10*3/uL (0.0-0.2) [facility] ID Date Data Source [id number] 04/13/2020 01:34:54 PM EST [facility] Name Value Range Interpretation Code Description Data Julianna rce(s) Supporting Document(s) VITAMIN B12 @ 1146 pg/mL (193-986) H [facility] ID Date Data Source [id number] 04/13/2020 01:34:54 PM EST [facility] Name Value Range Interpretation Code Description Data Julianna rce(s) Supporting Document(s) FREE THYROXINE @ 1.01 ng/dL (0.76-1.46) [facility] ID Date Data Source [id number] 04/13/2020 01:34:54 PM EST [facility] Name Value Range Interpretation Code Description Data Julianna rce(s) Supporting Document(s) TSH,ULTRASENSITIVE @ 1.340 mIU/L (0.360-4.170) [facility] ID Date Data Source [id number] 04/13/2020 01:34:54 PM EST [facility] [employer] Name Value Range Interpretation Code Description Data Julianna rce(s) Supporting Document(s) SODIUM 139 mmol/L (136-145) [facility] POTASSIUM 4.3 mmol/L (3.6-5.2) [facility] CHLORIDE 102 mmol/L (100-108) [facility] CO2 29 mmol/L (22-31) [facility] ANION GAP 8 mmol/L (7-16) [facility] UREA NITROGEN 17 mg/dL (7-24) [facility] CREATININE 0.83 mg/dL (0.60-1.00) [facility] BUN/CREAT RATIO 20.5 RATIO (10.0-20.0) H [facility] GLUCOSE 95 mg/dL (70-99) [facility] FASTING CALCIUM 8.8 mg/dL (8.4-10.2) [facility] TOTAL PROTEIN 7.0 g/dL (6.4-8.2) [facility] ALBUMIN 3.7 g/dL (3.2-4.5) [facility] GLOBULIN 3.3 g/dL (2.7-4.3) [facility] ALB/GLOB RATIO 1.1 RATIO [facility] ALKALINE PHOSPHATASE 70 U/L (45-117) Laborator y [facility] BILIRUBIN,TOTAL 0.3 mg/dL (0.0-1.0) [facility] PLEASE NOTE:Total bilirubin results may be falselyelevated in patients taking Eltrombopag. AST (SGOT) 18 U/L (11-39) [facility] ALT (SGPT) 15 U/L (12-78) [facility] GFR >60 ml/min/1.73m2 (>59) Laboratory [facility] [employer] GFR ( AMER) >60 ml/min/1.73m2 (>59) Laboratory [facility] GFR INTERPRETATION Laboratory [facility] --NORMAL KIDNEY FUNCTION OR MILD DISEASE - GFR >OR= 60CHRONIC KIDNEY DISEASE - GFR 15 - 59RENAL FAILURE - GFR <15 Est. GFR calculation based on the MDRDstudy equation, which assumes a steadystate for creatinine. Est. GFR should notbe used for medication dosing. ID Date Data Source [id number] 04/13/2020 01:34:54 PM EST [facility] [employer] Name Value Range Interpretation Code Description Data Julianna rce(s) Supporting Document(s) CHOLESTEROL @ 336 mg/dL (0-200) H [facility] TRIGLYCERIDE @ 222 mg/dL (30-200) H [facility] FASTING HDL CHOLESTEROL @ 88 mg/dL (>40) [facility] PER NCEP ATP III GUIDELINES:RESULTS LOWE R THAN 40 MG/DL ARE SUGGESTIVEOF INCREASED RISK FOR CORONARY ARTERYDISEASE. RESULTS > OR = TO 60 MG/DL ARECONSIDERED A NEGATIVE RISK FACTOR. CHOL/HDL RATIO 3.8 RATIO [facility] INTERPRETATION OF CHOL-HDL RATIO CHD RISK FEMALE MALEVERY HIGH >8.3 >14.3HIGH 5.6- 8.3 6.7- 14.3AVERAGE 3.7- 5.6 4.0- 6.7BELOW AVERAGE 2.5- 3.7 2.7- 4.0PROTECTED <2.5 <2.7 LDL CHOL (CALC) 204 mg/dL (<130) H [facility] PER NCEP ATP III GUIDELINES: OPTIMAL < 100 NEAR OPTIMAL 100 - 129BORDERLINE HIGH 130 - 159 HIGH 160 - 189 VERY HIGH > 189 ID Date Data Source [id number] 04/13/2020 03:11:50 PM EST [facility] Name Value Range Interpretation Code Description Data Julianna rce(s) Supporting Document(s) TRIIODOTHYRONINE @ 1.1 ng/mL (0.6-1.8) [facility] ID Date Data Source [id number] 04/14/2020 05:10:01 PM EST [facility] Name Value Range Interpretation Code Description Data Julianna rce(s) Supporting Document(s) 25 HYDROXY VIT D @ 29 ng/mL (31-100) L Laboratory [facility] A REVIEW OF THE LITERATURE SUGGESTS THEF OLLOWING RANGES FOR THE CLASSIFICATIONOF 25-OH VITAMIN D STATUS: VITAMIN D STATUS 25-OH VITAMIN D DEFICIENCY <20 NG/MLINSUFFICIENCY 20-30 NG/MLSUFFICIENCY 31 - 100 NG/MLTOXICITY > 100 NG/ML A PEDIATRIC REFERENCE RANGE HAS NOT BEENESTABLISHED USING THIS METHOD. ID Date Data Source [id number] 04/15/2020 08:03:10 PM EST Laboratory [facility] Name Value Range Interpretation Code Description Data Julianna rce(s) Supporting Document(s) VITAMIN B6 53.2 [facility] Reference range: 20.0 to 125.0Unit: nmol /L INTERPRETIVE INFORMATION: Vitamin B6 (Pyridoxal 5-Phosphate) Pyridoxal 5'-phosphate measured in a specimen collected following an 8-hour or overnight fast accurately indicates vitamin B6 nutritional status. Non-fasting specimen concentration reflects recent vitamin intake. Test developed and characteristics determined by [facility]. See Compliance Statement B: [email or web address] Performed By: [facility] [address] [place] [id number] Photo Mask Processor: Magda Louis MD ID Date Data Source [id number] 04/15/2020 08:57:22 PM EST [facility] Name Value Range Interpretation Code Description Data Julianna rce(s) Supporting Document(s) VITAMIN B1 154 nmol/L [facility] Reference range: 70 to 180 INTERPRETIVE INFORMATION: Vitamin B1, Whole Blood This assay measures the concentration of thiamine diphosphate (TDP), the primary active form of vitamin B1. Approximately 90 percent of vitamin B1 present in whole blood is TDP. Thiamine and thiamine monophosphate, which comprise the remaining 10 percent, are not measured. Test developed and characteristics determined by [facility]. See Compliance Statement B: [email or web address]/CS Performed By: [facility] [address] [place] [id number] Photo Mask Processor: Magda Louis MD ID Date Data Source [id number] 04/17/2020 10:40:26 AM EST [facility] Name Value Range Interpretation Code Description Data Julianna rce(s) Supporting Document(s) VITAMIN B2 6 [facility] Reference range: 5 to 50Unit: nmol/L INT ERPRETIVE INFORMATION: Vitamin B2, Plasma Test developed and characteristics determined by [facility]. See Compliance Statement B: [email or web address]/CS Performed By: [facility] [address] [place] [id number] Photo Mask Processor: Magda Louis MD ID Date Data Source [id number] 03/29/2020 03:03:00 PM EST [facility] ED Physician Documentation NAME: NEHAL RODRIGUEZ : 1955 AGE: 64 MR#: [id number] SERVICE DATE: 03/29/[address]: Becky Zurita MD PRIMARY CARE DR: Jose Armando Rubio M.D. ROOM#: HPI (Adult, General) General Chief Complaint: Multi system (Adult) Stated Complaint: EXPOSURE Resident LTC, travel outisde home, exposure to hot tubs:: No Time Seen by Provider: 03/29/20 14:46 Source: patient Exam Limitations: no limitations History of Present Illness Narrative: 64 yo woman with no significant PMHX, presents with concerns regarding COVID exposure. The patient was exposed to a family friend 7 days ago who tested + for COVID 2 days later. The patient has no cough or congestion, no N/V/D, no fevers or chills. Allergies/Home Meds Allergies Allergy/AdvReac Type Severity Reaction Status Date / Time No Known Drug Allergies Allergy Verified 03/29/20 15:03 Home Medications Medication Instructions Recorded Confirmed Last Taken Type Dim 250 Veggie Complex 1 tab PO DAILY 06/01/17 06/01/17 05/31/17 History acetaminophen [Tylenol*] 1 tab PO PRN PRN 06/01/17 06/01/17 06/01/17 History amoxicillin-pot clavulanate 1 ea PO BID #20 tab 06/01/17 Unknown Rx [Augmentin 875-125 Tablet] aspirin 1 tab PO PRN PRN 06/01/17 06/01/17 06/01/17 History PMH (from Triage) Patient Medical History PMH Reviewed/Updated as Needed: Yes Hx Drug Resistant Infections Hx MRSA: (Methicillin-resistant Staphylococcus aureus): No Hx VRE (Vancomycin-resistant enterococci): No Hx C.Diff: No Hx CRKP: No Isolation: Standard precautions Hx Recent Travel Out of the country within 10 days (where): No Hx Fever: No Hx Fever with a rash?: No Nurse screening for coronavirus: Recent Travel outside the No country (where) Has patient experienced No coronavirus symptoms Social History Does patient have suicidal/homicidal thoughts or ideation?: No Are you in a relationship with/Does anyone hit you, yell/swear at you, steal from you?: No Substance Use Hx Alcohol Use: No Hx Substance Use: No Hx Substance Use Treatment: No Vaccination History Hx/Date of Tetanus, Diphtheria Vaccination: No Hx/Date of Influenza Vaccination: No Hx/Date of Pneumococcal Vaccination: No PFSH Social History Does the Patient have a Healthcare Proxy: Yes Does Patient have a DNR?: Yes Does Patient have a Living Will?: Yes Hx Recent Travel (where): No ROS Review of Systems Constitutional: Denies fever and chills Eyes: Denies eye discharge/drng ENT: Denies nasal congestion and throat pain Respiratory: Denies cough Cardiovascular: Denies chest pain Gastrointestinal: Denies nausea, vomiting, abdominal pain and diarrhea Genitourinary-Female: Denies dysuria and frequency Musculoskeletal: Denies muscle pain and joint pain Skin/Breasts: Denies rash Neurologic: Denies weakness, numbness and headache Endocrine: Denies Loss of appetite Hematological/Lymphatic: Denies swollen glands Allergic/Immunologic: Denies rash Physical Exam General Physical Exam Narrative: thin woman, awake and alert, well appearing Limitations: no limitations General appearance: alert and in no apparent distress Head Head exam: Present atraumatic, normocephalic and normal inspection Eye Eye exam: Present normal apperance and EOMI; Absent scleral icterus and conjunctival injection ENT ENT exam: Present normal exam, normal orophraynx and mucous membranes moist Neck Neck exam: Present normal inspection and full ROM; Absent tenderness Respiratory Respiratory exam: Present normal lung sounds bilaterally; Absent respiratory distress Cardiovascular Cardiovascular Exam: Present regular rate and normal rhythm GI/Abdominal GI/Abdominal exam: Present Abd soft, bowel sounds present all quadrents; Absent tenderness Extremities Exam Extremities exam: Present normal inspection and full ROM; Absent tenderness Back Exam Back exam: Present normal inspection and full ROM; Absent tenderness Neurological Exam Neurological exam: Present alert and oriented X3; Absent motor sensory deficit Psychiatric Psychiatric exam: Present normal affect and normal mood Skin Skin exam: Present warm, dry, intact and normal color Vital Signs Vital Signs: Vital Signs 03/29/20 15:00 Temperature 98.4 F Respiratory Rate 16 Blood Pressure 150/82 O2 Sat by Pulse Oximetry 97 MDM (comprehensive) Lab Data Labs: Microbiology 03/29/20 15:00 Nasopharyngeal Influenza-Like Illness (PCR) - Final No Organisms Detected 03/29/20 15:00 Nasopharyngeal - Final Medical Decision Making Free Text/Narative:: The patient was evaluated after COVID exposure. The PE was normal. The COVID test was negative. Plan Plan Plan: d/c home Plan of care: Plan of care discussed with patient and or family, Patient encouraged to ask questionsabout plan and Patient agrees with plan of care Discharge Plan Admission/Discharge Dx Primary DC Diagnosis: COVID Exposure ED Provider: Becky Zurita ED Status: Discharged Time Seen by Provider: 03/29/20 14:46 Triaged At: 03/29/20 14:45 Condition Condition: Good Discharge Detail Disposition: Home, Self-Care Med Rec New Prescriptions: No Action aspirin 325 MG tablet 1 tab PO PRN PRN (Reason: Discomfort) RF: 0 acetaminophen [Mapap Extra Strength] 500 MG tablet 1 tab PO PRN PRN (Reason: Discomfort) RF: 0 Dim 250 Veggie Complex 1 tab PO DAILY RF: 0 amoxicillin-pot clavulanate [Augmentin] 875-125 mg tablet 1 ea PO BID Qty: 20 RF: 0 Medications Medication reconciliation performed by provider at discharge: Yes Follow Up Care/Instructions Diet/Activity/Wound Care..: Monitor for new onset symptoms please, primary care follow-up as needed *Discharge Patient* Discharge Orders: Discharge Order (Routine); Ordered 03/29/20 Ordered By: Becky Zurita Discharge Date/Time: 03/29/20 16:04 Interventions Interventions: ED Discharge Instructions Last Done: 03/29/20 16:04 ED General Adult Last Done: 03/29/20 15:05 Report Signers: <Electronically signed by Becky Zurita MD> Becky Zurita MD 03/29/20 1702 Becky Zurita MD SIGNATURE DA Report Cosigners: D: MARILEE 03/29/20 1503 T: MARILEE 03/29/20 1503 CC: Jose Armando Rubio M.D. Name Value Range Interpretation Code Description Data Julianna rce(s) Supporting Document(s) ID Date Data Source [id number] 03/29/2020 03:31:00 PM [facility] Markos Dorcas is a rapid, automated qualita tive anddifferentiation of Influenza type A,B and [id number]-[id number]-RT-PCR testNORMAL VALUE IS "NOT DETECTED".Limitations of the markos dorcas Influenza A/B & VLHW-GYD-8aobbr method.Modifications to manufacturers recommendation and proceduresmay alter performance of the test.Negative results do not preclude Influenza A,B or SARS- GYH9wcbcthvbsm and should not be used as the sole basis fortreatment or other management decisions. Results from theCobas Dorcas Influenza A/B & COV2 should be interpeted inconjunction with other laboratory and clinical dataavailable to the clinician.False negative results may occur if a specimen is improperlycollected, transported or handled. False negatives may occurif inadequate numbers of organisms are present in thespecimen.This test has not been evaluated for patients without signsand systoms of influenza and SARS-COV-2 infection.This assay has not been evaluated for patients receivingintranasal administered infl uenza vaccine.This assay has not been evaluated for immunocompromisedindividuals.This test cannot rule out diseases caused by other bacterialor viral pathogens.SARS-CoV-2 RNA Resp Ql [facility] Name Value Range Interpretation Code Description Data Julianna rce(s) Supporting Document(s) ID Date Data Source [id number] 03/29/2020 03:31:00 PM EST [facility] Markos Dorcas is a rapid, automated qualita tive anddifferentiation of Influenza type A,B and LKCQ-[id number]-3ZVRE-RT-PCR testNORMAL VALUE IS "NOT DETECTED".Limitations of the markos dorcas Influenza A/B & CTQL-JGX-1prram method.Modifications to manufacturers recommendation and proceduresmay alter performance of the test.Negative results do not preclude Influenza A,B or SARS- XVH7sbnzqduqbl and should not be used as the sole basis fortreatment or other management decisions. Results from theCobas Dorcas Influenza A/B & COV2 should be interpeted inconjunction with other laboratory and clinical dataavailable to the clinician.False negative results may occur if a specimen is improperlycollected, transported or handled. False negatives may occurif inadequate numbers of organisms are present in thespecimen.This test has not been evaluated for patients without signsand systoms of influenza and SARS-COV-2 infection.This assay has not been evaluated for patients receivingintranasal administered infl uenza vaccine.This assay has not been evaluated for immunocompromisedindividuals.This test cannot rule out diseases caused by other bacterialor viral pathogens.SARS-CoV-2 RNA Resp Ql [facility] Name Value Range Interpretation Code Description Data Julianna rce(s) Supporting Document(s) Extended hours FLU/COV2 NAAT L [facility] ID Date Data Source [id number] 03/29/2020 12:00:00 AM EST [facility] Name Value Range Interpretation Code Description Data Julianna rce(s) Supporting Document(s) SARS-CoV2 Rapid PCR [facility] This lab was ordered by [facility] and reported by [facility]. Procedure Social History Code Duration Value Status Description Data Source(s ) 03/29/2020 03:05:23 PM EST No completed No [facility] 03/29/2020 03:05:23 PM EST No completed No [facility] Vital Signs ID Date Data Source UNK Name Value Range Interpretation Code Description Data Source(s) Body mass index (BMI) [Ratio] 21.3 kg/m2 21.3 k g/m2 [facility] ([facility]) [place] body weight 115 [lb_av] 115 [lb_av] [facility] T ([facility]) Body weight 54.432 kg 54.432 kg [facility] ([facility]) Body height 63 [in_i] 63 [in_i] [facility] ([facility]) 5'3" Body weight 120.00 [lb_av] 120.00 [lb_av] [facility] T ([facility]) Body surface area Derived from formula 1.56 m2 1.56 m2 [facility] ([facility]) Systolic blood pressure 172 mm[Hg] 172 mm[Hg] [facility] ([facility]) Diastolic blood pressure 95 mm[Hg] 95 mm[Hg] [facility] ([facility], [facility]) Heart rate 79 /min 79 /min [facility] ([facility], [facility]) Respiratory rate 14 /min 14 /min [facility] ( [facility], [facility]) Oxygen saturation in Arterial blood by Pulse oximetry 96 % 96 % [facility]) Body temperature 97.5 [degF] 97.5 [degF] [facility] ([facility], [facility]) Body weight 119.00 [lb_av] 119.00 [lb_av] [facility] T ([facility], [facility]) Body height 63 [in_i] 63 [in_i] [facility] ([facility], [facility]) 5'3" Body mass index (BMI) [Ratio] 21.1 kg/m2 21.1 k g/m2 [facility] ([facility]) Heart rate 87 /min 87 /min [facility] ([facility]) Diastolic blood pressure 75 mm[Hg] 75 mm[Hg] [facility] ([facility]) Systolic blood pressure 100 mm[Hg] 100 mm[Hg] [facility] ([facility]) Body weight 119.00 [lb_av] 119.00 [lb_av] [facility] T ([facility]) Body weight 53.978 kg 53.978 kg [facility] ([facility]) Body height 63 [in_i] 63 [in_i] [facility] ([facility]) 5'3" Body mass index (BMI) [Ratio] 21.1 kg/m2 21.1 k g/m2 [facility] ([facility]) Body surface area Derived from formula 1.55 m2 1.55 m2 [facility] ([facility]) Systolic blood pressure 138 mm[Hg] 138 mm[Hg] M [facility] ([facility]) Diastolic blood pressure 88 mm[Hg] 88 mm[Hg] [facility] ([facility]) Body temperature 95.7 [degF] 95.7 [degF] [facility] ([facility]) Respiratory rate 16 /min 16 /min [facility] ( [facility]) Body weight 213.00 [lb_av] 213.00 [lb_av] [facility] T ([facility]) Body weight 96.617 kg 96.617 kg [facility] ([facility]) Body height 63 [in_i] 63 [in_i] [facility] ([facility]) 5'3" Body mass index (BMI) [Ratio] 37.7 kg/m2 37.7 k g/m2 [facility] ([facility]) Body surface area Derived from formula 1.99 m2 1.99 m2 [facility] ([facility])
[2021-03-17] MEDS ORDERED: CIPRODEX OTIC SUSP 7.5ML As Ordered ONE (08:04)
[2021-03-17] MEDS ORDERED: DESFLURANE 240 ML INHALANT As Ordered ONE (08:07)
[2021-03-17] MEDS ORDERED: propofoL 200 MG/20 ML VIAL As Ordered ONE (10:40)
[2021-03-17] MEDS ORDERED: LIDOCAINE 2% 100MG/5ML SDV (FOR ANES.) As Ordered ONE (10:40)
[2021-03-17] MEDS ORDERED: fentaNYL 100 MCG/2 ML INJECTION (J3010) As Ordered ONE ×2 (10:41→10:57)
[2021-03-17] MEDS ORDERED: MIDAZOLAM INJ 2MG/2ML VIAL (J2250 PER 1MG) As Ordered ONE (10:41)
[2021-03-17] MEDS ORDERED: ONDANSETRON 4MG/2ML VIAL As Ordered ONE (10:59)
[2021-03-17] MEDS ORDERED: dexameTHASONE 4 MG/ML 1ML VIAL (J1100 PER 1MG) As Ordered ONE (10:59)
[2021-03-17] MEDS ORDERED: fentaNYL 100 MCG/2 ML INJECTION (J3010) IV PRN (11:55)
[2021-03-17] MEDS ORDERED: PERCOCET 5MG/325MG TAB PO PRN (11:55)
[2021-03-17] MEDS ORDERED: ONDANSETRON 4MG/2ML VIAL IV PRN (11:55)
[2021-03-17] MEDS ORDERED: LR 1,000 ML IV SCH ×2 (11:55→12:05)
[2021-03-17 12:20] VITALS: BP 187/97
--- NOTE | 2021-03-17 17:00 | RO ---
OPERATIVE NOTE DATE OF OPERATION: 03/17/2021 PREOPERATIVE DIAGNOSIS: Eustachian tube dysfunction. POSTOPERATIVE DIAGNOSIS: Eustachian tube dysfunction. PROCEDURE PERFORMED: Bilateral tympanostomies. SURGEON: Mack Dacosta MD WEEKEND CAREGIVER: ANESTHESIA: General. CLINICAL PREAMBLE: This 65-year-old presented to the office complaining of chronic bilateral otalgia and fullness sensation. She had failed medical treatment. Physical examination revealed retracted tympanic membranes. Management options including bilateral tympanostomies have been discussed. The patient understood and consented to the procedure. OR NARRATION: Patient was identified in the preholding and brought to the operating room in stable condition. In the supine position on the operating room table the patient received general anesthesia followed by mask ventilation. The Radha-Mo mouth gag was inserted and suspended, the red rubber catheter was inserted via the right naris to retract the soft palate using a mirror, the hypertropic adenoid tissue was ablated. Hemostasis was achieved. The patient's head was turned to the left side to expose the right ear. Ear speculum was inserted and cerumen was debrided. The right tympanic membrane was visualized under binocular magnification under an operating microscope and was found to be intact and mildly retracted. Myringotomy incision was made over the anterior-inferior quadrant of the tympanic membrane. The right middle ear cleft was then suctioned clear. A 7 mm straight shank tympanostomy tube was inserted. Ciprodex generic drops were instilled and a cotton ball was used to occlude the ear canal. The same procedure was carried out to place the same type of tympanostomy tube the left ear as well. At the end of the procedure, sponge and needle counts were correct. No complications were encountered. Estimated blood loss was nil. General anesthesia was reversed and patient was awakened and taken to the recovery room in stable condition.
--- NOTE | 2021-03-18 07:43 | ECGEPIP ---
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
== END 2021-03-17 12:35 | disposition home or self-care (01) ==
LOC: M SDC 07:54
PROVIDERS: ATTEND Otolaryngology
DX: H69.93 Unspecified Eustachian tube disorder, bilateral (principal); E78.5 Hyperlipidemia, unspecified; Z79.899 Other long term (current) drug therapy
CPT/HCPCS: 69436; 93005; J1100; J2250; J2405; J3010

== ENCOUNTER → 2021-08-12 | Outpatient (CLI) | payer MEDICARE ==
[~2021-08-12] MED LIST changes: -LIDOCAINE 1% MDV 20ML VIAL SQ PRN; -LR 1,000 ML IV ONE
[2021-08-12 12:23] LABS: BASO % 0.8 % (0.0-1.0); EOS # 0.1 10^3/uL (0.0-0.5); EOS % 1.6 % (0.0-3.0); HEMATOCRIT 44.2 % (36.0-47.0); HEMOGLOBIN 14.2 g/dl (12.0-15.5); LYMPH # 1.3 10^3/uL (1.5-5.0); LYMPH % 25.6 % (24.0-44.0); MEAN CORPUSCULAR HGB CONC 32.1 g/dl (32.0-36.5); MEAN CORPUSCULAR VOLUME 96.5 fl (80.0-96.0); MONO # 0.3 10^3/uL (0.0-0.8); MONO % 6.7 % (2.0-8.0); NEUTROPHILS # 3.2 10^3/uL (1.5-8.5); NEUTROPHILS % 64.9 % (36.0-66.0); PLATELET COUNT, AUTOMATED 350 10^3/uL (150-450); RED BLOOD COUNT 4.58 10^6/uL (4.00-5.40)
[2021-08-12 12:50] LABS: ERYTHROCYTE SEDIMENTATION RATE 14 mm/hr (0-30)
[2021-08-12 15:17] LABS: ALBUMIN 3.8 GM/DL (3.2-5.2); ALT/SGPT 18 U/L (12-78); BILIRUBIN,TOTAL 0.3 MG/DL (0.2-1.0); BLOOD UREA NITROGEN 17 MG/DL (7-18); CALCIUM LEVEL 9.6 MG/DL (8.8-10.2); CARBON DIOXIDE LEVEL 30 MEQ/L (21-32); CHLORIDE LEVEL 106 MEQ/L (98-107); CREATININE FOR GFR 0.76 MG/DL (0.55-1.30); GLOMERULAR FILTRATION RATE > 60.0 (>45); GLUCOSE, FASTING 98 MG/DL (70-100); SODIUM LEVEL 142 MEQ/L (136-145); T UPTAKE 32 % (30-39); THYROXINE (T4) 9.4 UG/DL (4.5-12.0); VITAMIN B12 LEVEL 500 PG/ML
== END ==
LOC: M WUC 10:08
PROVIDERS: ATTEND Psychiatry & Neurology Neurology
DX: E07.9 Disorder of thyroid, unspecified (principal); D53.8 Other specified nutritional anemias; R41.3 Other amnesia

== ENCOUNTER → 2022-07-15 | Outpatient (CLI) | payer MEDICARE ==
[2022-07-15 14:45] LABS: BASO # 0.1 10^3/uL (0.0-0.2); EOS # 0.1 10^3/uL (0.0-0.5); EOS % 2.8 % (0.0-3.0); HEMATOCRIT 43.9 % (36.0-47.0); HEMOGLOBIN 14.2 g/dl (12.0-15.5); LYMPH # 1.2 10^3/uL (1.5-5.0); LYMPH % 23.1 % (24.0-44.0); MEAN CORPUSCULAR HEMOGLOBIN 31.6 pg (27.0-33.0); MEAN CORPUSCULAR HGB CONC 32.3 g/dl (32.0-36.5); MEAN CORPUSCULAR VOLUME 97.6 fl (80.0-96.0); MONO # 0.4 10^3/uL (0.0-0.8); MONO % 7.7 % (2.0-8.0); NEUTROPHILS # 3.3 10^3/uL (1.5-8.5); PLATELET COUNT, AUTOMATED 314 10^3/uL (150-450); WHITE BLOOD COUNT 5.1 10^3/uL (4.0-10.0)
[2022-07-15 14:49] LABS: ALBUMIN 3.6 G/DL (3.2-5.2); ALKALINE PHOSPHATASE 76 U/L (46-116); ALT/SGPT 12 U/L (7.0-40); AST/SGOT 17 U/L (<34); BILIRUBIN,TOTAL 0.4 MG/DL (0.3-1.2); BLOOD UREA NITROGEN 17 MG/DL (9-23); CALCIUM LEVEL 8.9 MG/DL (8.3-10.6); CARBON DIOXIDE LEVEL 31 MMOL/L (20-31); CHLORIDE LEVEL 104 MMOL/L (98-107); CREATININE FOR GFR 0.81 MG/DL (0.55-1.30); GLOMERULAR FILTRATION RATE > 60.0 (>45); GLUCOSE, FASTING 91 MG/DL (74-106); POTASSIUM SERUM 4.7 MMOL/L (3.5-5.1); SODIUM LEVEL 139 MMOL/L (136-145); TOTAL PROTEIN 6.5 G/DL (5.7-8.2)
[2022-07-15 14:51] LABS: FOLATE 15.87 NG/ML (>5.4); FREE T4 0.95 NG/DL (0.89-1.76); VITAMIN B12 LEVEL 466 PG/ML (211-911)
[2022-07-15 14:52] LABS: THYROID STIMULATING HORMONE 1.616 uIU/ML (0.55-4.78)
[2022-07-15 15:31] LABS: ERYTHROCYTE SEDIMENTATION RATE 21 mm/hr (0-30)
== END ==
LOC: M PLALAB 10:13
PROVIDERS: ATTEND Psychiatry & Neurology Neurology
DX: E07.9 Disorder of thyroid, unspecified (principal); E53.8 Deficiency of other specified B group vitamins; G43.909 Migraine, unspecified, not intractable, without status migrainosus